=== PATIENT | male | born 1980 | race Caucasian/White ===

== ENCOUNTER → 2018-03-19 | Outpatient (CLI) | payer OTHER ==
[~2018-03-19] MED LIST: AMBIEN5 MG PO; CYCLOBENZAPRINE5 MG; DEXILANT60 MG PO; ETODOLAC400 M1; GABAPENTIN300 MG PO; LISINOPRIL20 MG PO; LOSARTAN POTASS25 MG PO; PANTOPRAZOLE SO40 MG PO; PLAVIX75 MG PO; REGLAN10 MG; VERAPAMIL HCL80 MG PO; XANAX0.25 MG PO; ZANTAC300 MG
--- NOTE | 2018-03-19 14:41 | Diagnostic Imaging Report ---
PROCEDURE:US GALLBLADDER COMPARISON:None. INDICATIONS:Esophagitis TECHNIQUE: Dickey-scale and color doppler transverse and longitudinal images of the right upper quadrant of the abdomen were obtained. FINDINGS: Exam limited by overlying bowel gas. Liver: 15.5 cm in right mid-clavicular line. Increased echogenicity. No masses. Main portal vein: 1.3 cm, hepatopetal flow Gallbladder: No stones, sludge, wall thickening, or pericholecystic fluid. Common Bile Duct: 0.3 cm Sonographic Hdz's sign: Negative Right kidney: 12.6 cm. Normal echogenicity. No stones or hydronephrosis. 1.3 cm linear echogenic structure in the superior pole of the right kidney. 0.9 x 0.8 x 0.8 cm oval-shaped hyperechoic non-shadowing cortical focal lesion in the inferior pole. Pancreas: The visualized portions are unremarkable. Inferior vena cava: Patent Aorta: Midportion is obscured by overlying bowel gas. Proximal and distal aorta are unremarkable. Ascites: None in the right upper quadrant of the abdomen. CONCLUSION: 1. Mildly increased echogenicity of the hepatic parenchyma, consistent with steatosis. No focal lesions. 2. Indeterminate 1.3 cm linear echogenic structure in the superior pole of the right kidney. Correlate for prior surgical procedures. 3. 0.9 cm echogenic non-shadowing cortical focal lesion in the inferior pole of the right kidney likely represents a small angiomyolipoma Kosta Fowler M.D. Dictated by: Kosta Fowler M.D. on 03/19/2018 at 14:42 Electronically approved by: Kosta Fowler M.D. on 03/19/2018 at 14:42
== END ==
LOC: US 12:24
PROVIDERS: ATTEND Internal Medicine Gastroenterology
DX: K20.9 Esophagitis, unspecified (principal)
CPT/HCPCS: 76705

== ENCOUNTER → 2018-03-26 | Day surgery (SDC) | payer OTHER ==
[~2018-03-26] MED LIST changes: +FENTANYL CITRATE/PF 100MCG/2 ML INJ ONE; +LIDOCAINE HCL 2% LOCAL INJ 5 ML SDV VIAL INJ ONE; +MIDAZOLAM HCL 2 MG/2 ML VIAL ONE; +PROPOFOL IV EMULSION 10 MG/ML 50 ML VIAL ONE
--- OUTSIDE RECORDS SUMMARY | 2018-03-26 08:16 | XMS REPORT | Clinical Summary ---
Author Author [facility] Address Unknown Phone Unavailable Care Team Providers Care Archivist Name Role Phone Nicholas Chowdhury MD PCP Unavailable Allergies No Known Allergies Current Medications Prescription Sig. Disp. Refills Start End Date Status Date verapamil (CALAN) 80 MG 11/23/20 Active tablet 17 losartan (COZAAR) 50 MG 11/23/20 Active tablet 17 metoclopramide (REGLAN) 01/02/20 Active 10 MG tablet 18 DEXILANT 60 mg capsule Take 1 capsule (60 mg 30 capsule 3 01/12/20 Active total) by mouth daily. 18 ergocalciferol (DRISDOL) Take 1 capsule (50,000 12 capsule 0 01/20/20 01/20/20 Active 50,000 unit Units total) by mouth 18 19 capsuleIndications: Low once a week. vitamin D level DEXILANT 60 mg capsule 12/12/19 01/12/20 Discontin 18 18 ued Active Problems Problem Noted Date MVP (mitral valve prolapse) 01/12/2018 Hypoglycemia 01/12/2018 Gastroesophageal reflux disease without esophagitis 01/12/2018 Numerous moles 01/12/2018 Encounters Date Type Specialty Care Team Description 01/20/2018 Telephone Family Medicine Hannah Robles MA Low vitamin D level (Primary Dx) 01/12/2018 Hospital Radiology Errol Chowdhury MD Annual physical exam Encounter 01/12/2018 Office Visit Family Medicine Errol Chowdhury MD Annual physical exam (Primary Dx); MVP (mitral valve prolapse); Hypoglycemia; Gastroesophageal reflux disease without esophagitis; Numerous moles after 03/25/2017 Family History Medical History Relation Name Comments No Known Problems Father Relation Name Status Comments Father Mother Alive Social History Tobacco Use Types Packs/Day Years Used Date Never Smoker Smokeless Tobacco: Never Used Alcohol Use Drinks/Week oz/Week Comments Yes social Sex Assigned at Date Recorded Not on file Last Filed Vital Signs Vital Sign Reading Time Taken Blood Pressure 121/77 01/12/2018 9:22 AM [facility] Pulse 71 01/12/2018 9:22 AM [facility] Temperature 37.1 C (98.8 F) 01/12/2018 9:22 AM [facility] Respiratory Rate 12 01/12/2018 9:22 AM [facility] Oxygen Saturation 97% 01/12/2018 9:22 AM [facility] Inhaled Oxygen - - Concentration Weight 105 kg (232 lb) 01/12/2018 9:22 AM [facility] Height 182.9 cm (6') 01/12/2018 9:22 AM [facility] Body Mass Index 31.46 01/12/2018 9:22 AM [facility] Plan of Treatment Health Maintenance Due Date Last Done Comments INFLUENZA VACCINE 01/12/2023 Postponed from 06/30/2018 (Patient Refused) Results * XR Chest 2 Vw (01/12/2018 11:06 AM) Specimen Performing Laboratory [facility] [address] [place] [address] Narrative EXAMINATION:XR CHEST 2 VW CLINICAL HISTORY:Z00.00 Encounter for general adult medical examination without abnormal findings, annual exam COMPARISON:No prior IMPRESSION: 1. The heart and pulmonary vasculature are normal. There are no acute infiltrates or effusions. The lungs are clear. Osseous structures intact. [facility]-[id number] Procedure Note Interface, Radiology Results Incoming - 01/12/2018 11:25 AM [facility] EXAMINATION: XR CHEST 2 VW CLINICAL HISTORY: Z00.00 Encounter for general adult medical examination without abnormal findings, annual exam COMPARISON: No prior IMPRESSION: 1. The heart and pulmonary vasculature are normal. There are no acute infiltrates or effusions. The lungs are clear. Osseous structures intact. [facility]-[id number] * URINALYSIS, COMPLETE, WITH REFLEX TO CULTURE (01/12/2018 10:24 AM) Component Value Ref Range Specific gravity, urine 1.022 1.005 - 1.030 pH, urine 7.5 5.0 - 7.5 Color, UA Yellow Yellow Appearance Clear Clear WBC esterase, urine Negative Negative Protein, UA Negative Negative/Trace Glucose, urine Negative Negative Ketones, UA Negative Negative Occult blood, urine Negative Negative Bilirubin, UA Negative Negative Urobilinogen, UA 0.2 0.2 - 1.0 mg/dL Nitrite, UA Negative Negative Microscopic examination CommentComment: Microscopic follows if indicated. Microscopic examination See below:Comment: Microscopic was indicated and was performed. Urinalysis reflex CommentComment: This specimen will not reflex to a Urine Culture. Specimen Performing Laboratory [facility] Narrative Performed at:[address] [place], [place] [id number] Lineman: Jean Rinaldi MD, Phone:[phone] * Microscopic Examination (01/12/2018 10:24 AM) Component Value Ref Range WBC, UA 0-5 0 - 5 /hpf RBC, UA 0-2 0 - 2 /hpf Epithelial cells (non None seen 0 - 10 /hpf renal) Bacteria, UA None seen None seen/Few Specimen Performing Laboratory [facility] Narrative Performed at:[address] [place], [place] [id number] Lineman: Jean Rinaldi MD, Phone:[phone] * Vitamin D 25 hydroxy level (01/12/2018 10:24 AM) Component Value Ref Range Vitamin D, 25-hydroxy 15.3 (L) 30.0 - 100.0 ng/mL Comment: Vitamin D deficiency has been defined by the [place] of [employer] and an Endocrine Society practice guideline as a level of serum 25-OH vitamin D less than 20 ng/mL (1,2). The Endocrine Society went on to further define vitamin D insufficiency as a level between 21 and 29 ng/mL (2). 1. IOM ([place] of [employer]). 2010. Dietary reference intakes for calcium and D. [place]: The National Academies Press. 2. Angela MF, Rosa NC, Darío RAMESH, et al. Evaluation, treatment, and prevention of vitamin D deficiency: an Endocrine Society clinical practice guideline. JCEM. 2010; 96(7):1911-30. Specimen Performing Laboratory [facility] Narrative Performed at:[address] [place], [place] [id number] Lineman: Jean Rinaldi MD, Phone:[phone] * CBC with platelet and differential (01/12/2018 10:24 AM) Component Value Ref Range WBC 5.8 3.4 - 10.8 x10E3/uL RBC 5.40 4.14 - 5.80 x10E6/uL HGB 15.1 13.0 - 17.7 g/dL HCT 44.4 37.5 - 51.0 % MCV 82 79 - 97 fL MCH 28.0 26.6 - 33.0 pg MCHC 34.0 31.5 - 35.7 g/dL RDW 14.0 12.3 - 15.4 % Platelet count 229 150 - 379 x10E3/uL Neutrophils 71 Not Estab. % Lymphocytes 20 Not Estab. % Monocytes 7 Not Estab. % Eosinophils 1 Not Estab. % Basophils 0 Not Estab. % Neutrophils, absolute 4.1 1.4 - 7.0 x10E3/uL Lymphocytes, absolute 1.2 0.7 - 3.1 x10E3/uL Monocytes, absolute 0.4 0.1 - 0.9 x10E3/uL Eosinophils, absolute 0.1 0.0 - 0.4 x10E3/uL Basophils, absolute 0.0 0.0 - 0.2 x10E3/uL Immature granulocytes 1 Not Estab. % Immature grans (abs) 0.0 0.0 - 0.1 x10E3/uL Specimen Performing Laboratory [facility] Narrative Performed at:[address] [place], [place] [id number] Lineman: Jean Rinaldi MD, Phone:[phone] * Thyroid stimulating hormone (01/12/2018 10:24 AM) Component Value Ref Range TSH 2.400 0.450 - 4.500 uIU/mL Specimen Performing Laboratory [facility] Narrative Performed at:[address] [place], [place] [id number] Lineman: Jean Rinaldi MD, Phone:[phone] * Prostate specific antigen (01/12/2018 10:24 AM) Component Value Ref Range PSA 0.3 0.0 - 4.0 ng/mL Comment: Ever ECLIA methodology. According to the [place] [employer], Serum PSA should decrease and remain at undetectable levels after radical prostatectomy. The AUA defines biochemical recurrence as an initial PSA value 0.2 ng/mL or greater followed by a subsequent confirmatory PSA value 0.2 ng/mL or greater. Values obtained with different assay methods or kits cannot be used interchangeably. Results cannot be interpreted as absolute evidence of the presence or absence of malignant disease. Specimen Performing Laboratory [facility] Narrative Performed at:01 - [id number] Lineman: Jean Rinaldi MD, Phone:[phone] * Hemoglobin A1c (01/12/2018 10:24 AM) Component Value Ref Range Hemoglobin A1C 5.1 4.8 - 5.6 % Comment: Pre-diabetes: 5.7 - 6.4 Diabetes: >6.4 Glycemic control for adults with diabetes: <7.0 Specimen Performing Laboratory [facility] Narrative Performed at: [id number] Lineman: Jean Rinaldi MD, Phone:[phone] * Lipid panel (01/12/2018 10:24 AM) Component Value Ref Range Cholesterol 176 100 - 199 mg/dL Triglycerides 169 (H) 0 - 149 mg/dL HDL cholesterol 39 (L) >39 mg/dL VLDL cholesterol kd 34 5 - 40 mg/dL LDL cholesterol 103 (H) 0 - 99 mg/dL calculated Non-HDL cholesterol 137 (H) 0 - 129 mg/dL Specimen Performing Laboratory [facility] Narrative Performed at: [id number] Lineman: Jean Rinaldi MD, Phone:[phone] * Comprehensive metabolic panel (01/12/2018 10:24 AM) Component Value Ref Range Glucose 94 65 - 99 mg/dL BUN, whole blood 15 6 - 20 mg/dL Creatinine 0.94 0.76 - 1.27 mg/dL EGFR Non-Afr. [place] 102 >59 mL/min/1.73 EGFR 118 >59 mL/min/1.73 BUN/creatinine ratio 16 9 - 20 Sodium 141 134 - 144 mmol/L Potassium 4.2 3.5 - 5.2 mmol/L Chloride 98 96 - 106 mmol/L CO2 26 18 - 29 mmol/L Calcium 9.8 8.7 - 10.2 mg/dL Protein 6.9 6.0 - 8.5 g/dL Albumin, S 4.6 3.5 - 5.5 g/dL Globulin, total 2.3 1.5 - 4.5 g/dL Albumin/globulin ratio 2.0 1.2 - 2.2 Total bilirubin 0.4 0.0 - 1.2 mg/dL Alkaline phosphatase 68 39 - 117 IU/L AST 16 0 - 40 IU/L ALT 31 0 - 44 IU/L Specimen Performing Laboratory [facility] Narrative Performed at: - [facility] [id number] Lineman: Jean Rinaldi MD, Phone:[phone] * ECG 12 lead (01/12/2018 10:07 AM) Component Value Ref Range Ventricular rate 57 Atrial rate 57 FL interval 158 QRSD interval 108 QT interval 460 QTC interval 447 P axis 1 24 QRS axis 1 78 T wave axis 29 EKG impression Sinus bradycardia-T wave abnormality, consider anterolateral ischemia-Abnormal ECG-No previous ECGs available- Specimen Performing Laboratory [facility] [address] [place] [address] after 03/25/2017 Insurance Payer Benefit Subscriber ID Type Phone Address Plan / Group [facility] xxxxxxxxx HMO/PPO THCARE CHOICE/CHO ICE +
--- OUTSIDE RECORDS SUMMARY | 2018-03-26 08:16 | XMS REPORT ---
Author Author [facility] Address Unknown Phone Unavailable Care Team Providers Care Junior Systems Analyst Name Role Phone DANIS GARCIA Unavailable Unavailable Problems This patient has no known problems. Allergies, Adverse Reactions, Alerts This patient has no known allergies or adverse reactions. Medications This patient has no known medications. Results Test Description Test Time Test Comments Text Results Atomic Results Result Comments US GALLBLADDER [place] [address] Patient Name: MOHAN DYER MR #: [id number] : 1980 Age/Sex: 37/M Req #: [id number] Adm Physician: Ordered by: DANIS GARCIA MD Report #: [id number] Location: US Room/Bed: Procedure: [id number] US/US GALLBLADDER Exam Date: Exam Time: REPORT STATUS: Signed PROCEDURE: US GALLBLADDER COMPARISON: None. INDICATIONS: Esophagitis TECHNIQUE: Dickey-scale and color doppler transverse and longitudinal images of the right upper quadrant of the abdomen were obtained. FINDINGS: Exam limited by overlying bowel gas. Liver: 15.5 cm in right mid-clavicular line. Increased echogenicity. No masses. Main portal vein: 1.3 cm, hepatopetal flow Gallbladder: No stones, sludge , wall thickening, or pericholecystic fluid. Common Bile Duct: 0.3 cm Sonographic Hdz's sign: Negative Right kidney: 12.6 cm. Normal echogenicity. No stones or hydronephrosis. 1.3 cm linear echogenic structure in the superior pole of the right kidney. 0.9 x 0.8 x 0.8 cm oval-shaped hyperechoic non-shadowing cortical focal lesion in the inferior pole. Pancreas: The visualized portions are unremarkable. Inferior vena cava: Patent Aorta: Midportion is obscured by overlying bowel gas. Proximal and distal aorta are unremarkable. Ascites: None in the right upper quadrant of the abdomen. CONCLUSION: 1. Mildly increased echogenicity of the hepatic parenchyma, consistent with steatosis. No focal lesions. 2. Indeterminate 1.3 cm linear echogenic structure in the superior pole of the right kidney. Correlate for prior surgical procedures. 3. 0.9 cm echogenic non -shadowing cortical focal lesion in the inferior pole of the right kidney likely represents a small angiomyolipoma Silvina Fowler M.D. Dictated by: Silvina Fowler M.D. on 03/19/2018 at 14:42 Electronically approved by: Silvina Fowler M.D. on 03/19/2018 at 14:42 Dictated By: SILVINA FOWLER MD [id number] Transcribed By: GLORIA on 03/19/18 1442 COPY TO: DANIS GARCIA MD
--- NOTE | 2018-03-26 10:24 | Operative Report ---
DATE OF PROCEDURE: March 26, 2018 REFERRING PHYSICIAN: Moody Grewal MD PROCEDURE PERFORMED: Esophagogastroduodenoscopy with biopsies. INDICATIONS FOR EGD: Upper abdominal pain, heartburn, indigestion. MEDICATION: Patient was done under MAC. Please see anesthesiologist's note. PROCEDURE: With the patient in the left lateral decubitus position, the flexible fiberoptic Olympus gastroscope was introduced into the esophagus under direct visualization without any difficulty. There was some patchy erythema noted in the distal esophagus. The scope was then advanced with ease into the stomach, traversing a small sliding hiatal hernia. Mucosa overlying the antrum and the body revealed some patchy intense erythema and low-grade to moderate edema, and biopsies were obtained and sent to stain for H. pylori. There was an approximately 5-mm nodule in the antrum that was biopsied also. The pylorus was of normal contour and shape. It was intubated with ease, and the scope was advanced all the way to the 2nd portion of the duodenum. The scope was then withdrawn slowly. Mucosa overlying the proximal 2nd portion and the duodenal bulb appeared to be within normal limits. The scope was then withdrawn back into the stomach and retroflexed, and mucosa overlying the fundus and the cardia appeared to be within normal limits. The scope was then straightened out. The stomach was decompressed. The scope was subsequently withdrawn. Patient tolerated the procedure well. IMPRESSION 1. Distal esophagitis, mild. 2. Small sliding hiatal hernia. 3. Gastritis, biopsied. Biopsies sent to stain for H. pylori. 4. Gastric nodule, antrum, approximately 5 mm in size, biopsied. PLAN: Follow up histology. Increase Dexilant to 60 mg 1 p.o. a.c. b.i.d. Job#: [id number]
== END | disposition home or self-care (01) ==
LOC: OR 08:13
PROVIDERS: ATTEND Internal Medicine Gastroenterology
PROC: 0DB68ZZ Excision of Stomach, Via Natural or Artificial Opening Endoscopic (ICD-10-PCS; principal; 2018-03-26 09:23)
DX: K20.8 Other esophagitis (principal); K29.50 Unspecified chronic gastritis without bleeding; K44.9 Diaphragmatic hernia without obstruction or gangrene; K29.60 Other gastritis without bleeding; K31.89 Other diseases of stomach and duodenum; K21.9 Gastro-esophageal reflux disease without esophagitis; I10 Essential (primary) hypertension; E16.2 Hypoglycemia, unspecified; I34.1 Nonrheumatic mitral (valve) prolapse; F41.0 Panic disorder [episodic paroxysmal anxiety]; Z79.02 Long term (current) use of antithrombotics/antiplatelets; Z68.31 Body mass index [BMI] 31.0-31.9, adult
CPT/HCPCS: 43239; 93005; J2001; J2250

== ENCOUNTER → 2019-03-16 | Day surgery (SDC) | payer OTHER ==
[2019-03-11 09:55] LABS: BASOPHILS # (AUTO) 0.1 (0.0-0.1); BASOPHILS % 0.8 % (0.0-1.0); EOSINOPHILS # (AUTO) 0.2 (0.0-0.4); EOSINOPHILS % 2.6 % (0.0-6.0); HEMATOCRIT 47.3 % (38.2-49.6); HEMOGLOBIN 15.9 g/dL (14.0-18.0); LYMPHOCYTES # (AUTO) 1.6 (1.0-3.2); LYMPHOCYTES % 21.4 % (18.0-39.1); MEAN CORPUSCULAR HEMOGLOBIN 27.5 pg (28-32); MEAN CORPUSCULAR HGB CONC 33.6 g/dL (31-35); MEAN CORPUSCULAR VOLUME 81.8 fL (81-99); MONOCYTES # (AUTO) 0.6 (0.2-0.8); MONOCYTES % 7.3 % (4.4-11.3); NEUTROPHILS # (AUTO) 5.1 (2.1-6.9); NEUTROPHILS % 66.5 % (38.7-80.0); PLATELET COUNT 284 x10e3/uL (140-360); RED BLOOD COUNT 5.78 x10e6/uL (4.3-5.7); RED CELL DISTRIBUTION WIDTH 12.7 % (11.7-14.4)
[2019-03-11 10:00] LABS: BILIRUBIN,URINE 2+ (NEGATIVE); CLARITY,URINE CLEAR (CLEAR); COLOR,URINE YELLOW (YELLOW)
[2019-03-11 10:01] LABS: KETONES,URINE NEGATIVE (NEGATIVE); LEUKOCYTE ESTERASE ,URINE NEGATIVE (NEGATIVE); NITRITE,URINE NEGATIVE (NEGATIVE); PROTEIN,URINE DIPSTICK NEGATIVE (NEGATIVE); URINE UROBILINOGEN 0.2 mg/dL (0.2 - 1)
[2019-03-11 10:18] LABS: ALANINE AMINOTRANSFERASE 39 IU/L (0-55); ALBUMIN 4.1 g/dL (3.5-5.0); ALBUMIN/GLOBULIN RATIO 1.2 (0.8-2.0); ALKALINE PHOSPHATASE 73 IU/L (40-150); BLOOD UREA NITROGEN 16 mg/dL (7-26); BUN/CREATININE RATIO 19 (6-25); CALCIUM 9.9 mg/dL (8.4-10.2); CARBON DIOXIDE 26 mmol/L (22-29); CHLORIDE 105 mmol/L (98-107); CREATININE, SERUM 0.84 mg/dL (0.72-1.25); EST GLOMERULAR FILTRATION RATE > 60 ML/MIN (60-); GLUCOSE 94 mg/dL (74-118); SODIUM 140 mmol/L (136-145)
[~2019-03-16] MED LIST changes: +ACETAMINOPHEN 1000 MG/100 ML IV ONE; +BUPIVACAINE 0.25%/EPI 30ML SDV INJ ONE; +DESFLURANE 240 ML BTL INH ONE; +DEXAMETHASONE SOD PHOS INJ 4 MG/ML VIAL ONE; +GLYCOPYRROLATE INJ 1MG/ 5 ML SYR ONE; +METOCLOPRAMIDE HCL 10 MG/2ML VIAL ONE; +NEOSTIGMINE 5 MG/5ML SYR ONE; +ONDANSETRON HCL INJ 2MG/ML 2ML 2 MG/ML VIAL ONE; +PROMETHAZINE HCL (IM) 25 MG/ML VIAL ONE; +PROPOFOL IV EMULSION 10 MG/ML 20 ML VIAL ONE; -PROPOFOL IV EMULSION 10 MG/ML 50 ML VIAL ONE; +ROCURONIUM BROMIDE 10 MG/ML 5ML VIAL ONE
--- OUTSIDE RECORDS SUMMARY | 2019-03-16 06:28 | XMS REPORT | Clinical Summary ---
Author Author [facility] Organization [facility] Address Unknown Phone Unavailable Care Team Providers Care Journeyman Pipe Fitter Name Role Phone Errol Chowdhury MD PCP Unavailable Allergies No Known Allergies Medications End Date Status Medication Sig Dispensed Refills Start Date Active losartan (COZAAR) 50 MG 0 tablet 7 Active metoclopramide (REGLAN) 0 10 MG tablet 8 Active verapamil sustained Take 120 mg 0 release (CALAN-SR) 120 MG by mouth SR tablet nightly. Active tiZANidine (ZANAFLEX) 4 1 TABLET 0 MG tablet TWICE DAILY 8 FOR MUSCLE PAIN Active clopidogrel (PLAVIX) 75 Take 75 mg by 5 mg tablet mouth daily. 8 Active dexlansoprazole Take 60 mg by 0 (DEXILANT) 60 mg capsule mouth. 12/08/2019 Active etodolac (LODINE) 500 MG Take 1 tablet 60 tablet 1 tablet (500 mg 9 total) by mouth 2 (two) times a day. Active VITAMIN D2 50,000 unit TAKE ONE 4 capsule 2 capsuleIndications: Low CAPSULE BY 9 vitamin D level MOUTH ONCE A WEEK 11/11/2018 Discontinued verapamil (CALAN) 80 MG 0 tablet 7 12/08/2018 Discontinued DEXILANT 60 mg capsule Take 1 30 capsule 3 capsule (60 8 mg total) by mouth daily. 04/19/2018 Discontinued ergocalciferol (DRISDOL) Take 1 12 capsule 0 50,000 unit capsule 8 capsuleIndications: Low (50,000 Units vitamin D level total) by mouth once a week. 07/13/2018 Discontinued VITAMIN D2 50,000 unit TAKE ONE 12 capsule 0 capsuleIndications: Low CAPSULE BY 8 vitamin D level MOUTH ONCE A WEEK 09/30/2018 Discontinued VITAMIN D2 50,000 unit TAKE ONE 4 capsule 2 capsuleIndications: Low CAPSULE BY 8 vitamin D level MOUTH ONCE A WEEK 12/23/2018 Discontinued VITAMIN D2 50,000 unit TAKE ONE 4 capsule 2 capsuleIndications: Low CAPSULE BY 8 vitamin D level MOUTH ONCE A WEEK 12/08/2018 Discontinued clopidogrel (PLAVIX) 75 Take 75 mg by 0 mg tablet mouth. 8 11/24/2018 methylPREDNISolone Take 1 tablet 21 tablet 0 (MEDROL DOSEPAK) 4 mg (4 mg total) 8 tablet by mouth See Admin Instructions for 5 days. Use as directed by package instructions Active Problems Problem Noted Date Chest discomfort 01/24/2019 MVP (mitral valve prolapse) 01/12/2018 Hypoglycemia 01/12/2018 Gastroesophageal reflux disease without esophagitis 01/12/2018 Numerous moles 01/12/2018 Encounters Care Team Description Date Type Specialty Chay Rodriges MD Essential hypertension (Primary Dx); Chest discomfort; MVP (mitral valve prolapse) 01/24/2019 Office Visit Cardiology Errol Chowdhury MD Low vitamin D level 12/23/2018 Refill Family Medicine Errol Chowdhury MD Osteoarthritis of cervical spine, unspecified spinal osteoarthritis complication status (Primary Dx) 12/08/2018 Office Visit Family Medicine Errol Chowdhury MD Cervical radiculitis 11/26/2018 Hospital Radiology Encounter Agustin Jc MD 11/19/2018 Hospital Radiology Encounter Errol Chowdhury MD Labbe, Marc R., MD Cervical radiculopathy (Primary Dx); Tear of left glenoid labrum, initial encounter 11/19/2018 Office Visit Orthopedic Surgery Errol Chowdhury MD Tear of left glenoid labrum, initial encounter (Primary Dx); Chronic nonintractable headache, unspecified headache type; Cervical radiculitis; Chest discomfort 11/11/2018 Office Visit Family Medicine Errol Chowdhury MD Low vitamin D level 09/30/2018 Refill Family Medicine Errol Chowdhury MD Low vitamin D level 07/13/2018 Refill Family Medicine Errol Chowdhury MD Low vitamin D level 04/19/2018 Refill Family Medicine after 03/15/2018 Family History Medical History Relation Name Comments No Known Problems Father Relation Name Status Comments Father Mother Alive Social History Date Tobacco Use Types Packs/Day Years Used Never Smoker Smokeless Tobacco: Never Used Tobacco Cessation: Counseling Given: Yes Alcohol Use Drinks/Week oz/Week Comments Yes social Sex Assigned at Date Recorded Not on file Industry Job Start Date Occupation Not on file Not on file Not on file Travel End Travel History Travel Start No recent travel history available. Last Filed Vital Signs Time Taken Vital Sign Reading 01/24/2019 1:49 PM [facility] Blood Pressure 133/76 01/24/2019 1:49 PM [facility] Pulse 94 12/08/2018 4:05 PM [facility] Temperature 36.6 C (97.8 F) 01/24/2019 1:49 PM [facility] Respiratory Rate 18 01/24/2019 1:49 PM [facility] Oxygen Saturation 99% - Inhaled Oxygen - Concentration 01/24/2019 1:49 PM [facility] Weight 111 kg (245 lb) 01/24/2019 1:49 PM [facility] Height 182.9 cm (6') 01/24/2019 1:49 PM [facility] Body Mass Index 33.23 Plan of Treatment Care Team Description Date [place] [address] [place] [address] [phone] 05/23/2019 Office Visit Cardiology Health Maintenance Due Date Last Done Comments INFLUENZA VACCINE 01/12/2023 Postponed from 06/30/2019 (Patient Refused) Procedures Comments Procedure Name Priority Date/Time Associated Diagnosis ECG 12-LEAD Routine 01/24/2019 Chest discomfort 1:55 PM [facility] Essential hypertension MVP (mitral valve prolapse) MRI CERVICAL SPINE WO Routine 11/26/2018 Cervical radiculitis CONTRAST 8:00 PM [facility] MRI UPPER EXTREMITY Routine 05/21/2018 EXTERNAL STUDY 3:28 PM CDT after 03/15/2018 Results * ECG 12 lead (01/24/2019 1:55 PM [facility]) Ventricular rate 95 [facility] Atrial rate 95 [facility] AZ interval 170 [facility] QRSD interval 98 [facility] QT interval 362 [facility] QTC interval 454 [facility] P axis 1 63 [facility] QRS axis 1 111 [facility] T wave axis 25 [facility] EKG impression Normal sinus rhythm-Possible [facility] Lateral infarct , age undetermined-Possible Inferior infarct , age undetermined-Abnormal ECG- Narrative Performed At Performing Organization Address [facility] Phone Number [facility] [address] [place] [address] * MRI Cervical Spine Wo Contrast (11/26/2018 8:00 PM [facility]) Narrative Performed At [facility] EXAMINATION:MRI CERVICAL SPINE WO CONTRAST COMPARISON:None CLINICAL HISTORY:M54.12 Radiculopathycervical region, Radiculopathy COMMENTS:Sagittal and axial MR images of the cervical spine were obtained. FINDINGS:C3-4 shows minimal disc bulge and facet disease. C4-5 shows mild facet and uncovertebral joint degenerative change. C5-6 shows mild facet and uncovertebral joint degenerative change. There is minimal disc bulge. C7-T1 shows mild facet disease and uncovertebral joint degenerative change with mild narrowing left-sided foramen. There is mild disc bulge. C7-T1 shows mild facet disease. The signal within the cord appears intact. The alignment is intact. IMPRESSION:Mild degenerative change in the cervical spine. [facility]-[id number] Procedure Note Hm Interface, Radiology Results Incoming - 11/26/2018 8:10 PM [facility] EXAMINATION: MRI CERVICAL SPINE WO CONTRAST COMPARISON: None CLINICAL HISTORY: M54.12 Radiculopathy cervical region, Radiculopathy COMMENTS: Sagittal and axial MR images of the cervical spine were obtained. FINDINGS: C3-4 shows minimal disc bulge and facet disease. C4-5 shows mild facet and uncovertebral joint degenerative change. C5-6 shows mild facet and uncovertebral joint degenerative change. There is minimal disc bulge. C7-T1 shows mild facet disease and uncovertebral joint degenerative change with mild narrowing left-sided foramen. There is mild disc bulge. C7-T1 shows mild facet disease. The signal within the cord appears intact. The alignment is intact. IMPRESSION: Mild degenerative change in the cervical spine. [facility]-[id number] Performing Organization Address [facility] Phone Number [facility] [address] [place] [phone] * MRI Upper Extremity External Study (05/21/2018 3:28 PM CDT) Narrative Performed At This exam was not acquired at a [facility] facility and has not been [facility] interpreted by a [facility] Provider.The exam was imported into our imaging system for comparisons purposes. Performing Organization Address City/State/Zipcode Phone Number [facility] [address] [place] [address] after 03/15/2018 Insurance Payer Benefit Subscriber ID Type Phone Address Plan / Group [facility] xxxxxxxxx HMO/PPO THCARE CHOICE/CHO ICE + Advance Directives Patient has advance care planning documents on file. For more information, betty salas contact: Kemar Nova [address] [place] [phone]
--- NOTE | 2019-03-16 07:10 | NUR ---
SPIRITUAL CARE - Pre-Surgery Assessment: Pt in bed. Pt's girlfriend at bedside. Pt reported supportive attention from family and friends. Intervention: I provided pastoral presence, hospitality, and sympathetic listening. I acquainted pt with availability of insect control aide while hospitalized. Outcome: Pt expressed appreciation for visit. No need for follow up indicated at this time. [facility]OL[facility]DA [facility] Spiritual Care Department O: [phone] Pager: [phone] ([phone] number calling from)
[2019-03-16 11:45] VITALS: BP 119/69
--- NOTE | 2019-03-16 17:05 | Operative Report ---
DATE OF PROCEDURE: 03/16/2019 SURGEON: Abner Quarles MD PREOPERATIVE DIAGNOSIS: Biliary dyskinesia. POSTOPERATIVE DIAGNOSIS: Biliary dyskinesia. OPERATION PERFORMED: Laparoscopic cholecystectomy. BUSINESS SUPPORT PROFESSIONAL: Dr. dR Quarles and JULIA Wilkinson. ANESTHESIA: General. COMPLICATIONS: None. ESTIMATED BLOOD LOSS: Minimal. DESCRIPTION OF PROCEDURE: With the patient lying in bed in the supine position under good general endotracheal anesthesia, the abdomen was prepped with Betadine solution and draped in the usual manner. A Veress needle was introduced into the umbilicus and pneumoperitoneum was established without any difficulty. An 11 mm trocar was placed into the umbilicus and a 10 mm videolaparoscope was placed into the intraabdominal cavity. Under direct vision, three 5 mm trocars were placed in the right subcostal region. Video laparoscopy at this point revealed the gallbladder to be somewhat boggy and distended. There was some mild fatty infiltration of the liver. The rest of the abdominal exploration appeared to be within normal limits. The peritoneum overlying the neck of the gallbladder was then opened and the cystic duct was identified. The cystic duct was followed to its junction with the common duct. The cystic duct was then circumferentially dissected away from the common duct, doubly clipped and divided. The cystic artery was similarly doubly clipped and divided. The gallbladder was then slowly and carefully taken off the liver bed using the cautery scissors and perfect hemostasis was ascertained. The gallbladder was grasped through the umbilical port and removed without any difficulty. Video laparoscopy was then again carried out. The liver bed was found to be perfectly dry. All the excess fluid was aspirated. The pneumoperitoneum was evacuated and all the trocars were removed under direct vision. The midline fascia at the umbilicus was then closed with a [id number] of 0-Vicryl. All layers were infiltrated on the way out with solution of 0.25% Marcaine. Subcutaneous tissue was approximated with 3-0 Vicryl and the skin was closed with subcuticular 5-0 Vicryl. Benzoin Steri-Strips and Band-Aids were applied. The sponge, lap, and needle count was correct. The patient tolerated the procedure well and returned to the recovery room in stable condition. MD MICHELLE Hart/JANNA /[id number]
== END | disposition home or self-care (01) ==
LOC: OR 06:25
PROVIDERS: ATTEND Surgery
DX: K82.8 Other specified diseases of gallbladder (principal); Z01.810 Encounter for preprocedural cardiovascular examination; Z01.812 Encounter for preprocedural laboratory examination; K82.4 Cholesterolosis of gallbladder
CPT/HCPCS: 36415; 47562; 80053; 81003; 85025; 88304; 93005; C1766; J0131; J1100; J2001; J2250; J2405; J2550; J2704; J2765; J3490